=== PATIENT | female | born 1980 | race African-American/Black ===

== ENCOUNTER → 2020-04-28 | Outpatient (CLI) | payer MEDICAID, OTHER ==
--- NOTE | 2020-04-28 15:47 | KCIC ---
MRI Brain without contrast History:Numbness, dizziness, blurred vision, left hand numbness, numbness in fingers and toes, dizziness Technique: Multiplanar, multisequential noncontrast MR imaging was performed of the brain. Comparison: None Findings: Patient was unable to complete the exam due to claustrophobia. There is no evidence of recent infarct or cytotoxic edema. The ventricles, sulci, and cisterns are within normal limits in size and configuration. There is no significant midline shift, intraaxial mass effect, or focal abnormal extra-axial fluid collection. There is no significant signal abnormality of the brain parenchyma. There is preservation of the major intracranial flow-voids at the skull base. The cerebellar tonsils are normal in location. There is no significant abnormality of the pineal gland. There is sellar and suprasellar signal abnormality estimated about 1.1 cm CC by 1.1 cm AP by 1.2 cm transverse, internally mostly hyperintense on T2 sequence, somewhat mixed heterogeneous characteristics on the T1 sequence. There is minimal ethmoid air cell mucosal thickening. Frontal sinus is not pneumatized. The mastoid air cells are aerated. Mild heterogeneity of the marrow of the nonexpanded clivus may be due to residual red marrow in a patient this age. Impression: 1. There is sellar and suprasellar signal abnormality concerning for underlying mass or complex cyst lesion for which characterization with pre and postcontrast imaging recommended. 2. There is no intracranial mass effect or focal signal abnormality of the brain parenchyma. Electronically signed by: Trevor Lopez MD (04/28/2020 3:44 PM) [id number]
== END ==
LOC: KCIC MRI 14:01
PROVIDERS: ATTEND Psychiatry & Neurology Neurology with Special Qualifications in Child Neurology
DX: R20.0 Anesthesia of skin (principal); R42 Dizziness and giddiness; H53.8 Other visual disturbances
CPT/HCPCS: 70551

== ENCOUNTER → 2020-05-09 | Outpatient (CLI) | payer MEDICAID ==
[2020-05-10 07:19] LABS: FSH 3.5 mIU/mL (.); LUTEINIZING HORMONE 2.2 mIU/mL (.); PROLACTIN 40.5 ng/mL (4.8-23.3)
[2020-05-11 13:15] LABS: GROWTH HORMONE 0.1 ng/mL (0.0-10.0)
== END | disposition home or self-care (01) ==
LOC: LAB 16:01
PROVIDERS: ATTEND Psychiatry & Neurology Neurology with Special Qualifications in Child Neurology
DX: G93.89 Other specified disorders of brain (principal)
CPT/HCPCS: 36415; 83001; 83002; 83003; 84146; 84443

== ENCOUNTER → 2020-05-18 | Outpatient (CLI) | payer MEDICAID ==
[~2020-05-18] MED LIST: GADOTERATE 7.5 MMOL/15ML VIAL. IVP ONE
--- NOTE | 2020-05-18 14:06 | KCIC ---
MRI Brain with and without contrast History:Headaches, abnormal MRI Technique: Multiplanar, multi sequential pre and postcontrast MR imaging was performed of the brain. Comparison: Noncontrast exam April 28, 2020 Findings: There is motion degradation for the dedicated pituitary imaging. Infundibulum is deviated to the left. There is more heterogeneous, partially T2 hyperintense signal of the right aspect of the sella although more solid appearance anteriorly such as seen on image 12 series 13. There is associated relative decreased enhancement compared with the remainder of the pituitary gland. Focus of heterogeneous signal and relative decreased enhancement measures about 1.1 cm CC by about 1.3 cm transverse by about 0.9 cm AP. There is some extent to the right cavernous sinus with some insinuation between the cavernous and ophthalmic internal carotid artery. There is no significant displacement of the optic chiasm. There is no new brain parenchymal signal abnormality. There is no abnormal intracranial enhancement. Impression: 1. There is heterogeneous signal change and relative decreased enhancement of the central and right sella which has degree of cystic signal characteristics although more solid component anteriorly. 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 There is some extent to the right cavernous sinus. 2. There is no abnormal intracranial enhancement. Electronically signed by: Trevor Lopez MD (05/18/2020 2:04 PM) [id number]
== END | disposition home or self-care (01) ==
LOC: KCIC MRI 10:03
PROVIDERS: ATTEND Psychiatry & Neurology Neurology with Special Qualifications in Child Neurology
DX: G93.0 Cerebral cysts (principal); R51 Headache
CPT/HCPCS: 70553; A9575

== ENCOUNTER → 2021-05-01 | Outpatient (CLI) | payer MEDICAID ==
--- NOTE | 2021-05-01 13:36 | KCIC ---
EXAMINATION: Magnetic resonance imaging (MRI) of the brain and pituitary without and with contrast 05/01/2021 9:50 AM HISTORY: Suprasellar mass. Blurred vision, dizziness and numbness TECHNIQUE: Multiplanar multi-weighted MRI of the brain and brainstem was performed without and with i ntravenous contrast using the pituitary brain protocol. Contrast information: Gadolinium based contrast COMPARISON: MRI brain 05/18/2020, 04/28/2020. FINDINGS: There is a 1.3 x 1.5 x 1.3 cm mass centered within the sella with mixed T2 signal intensity and predo minantly T1 signal hypointensity. There is suprasellar extension without significant mass effect on o ptic chiasm. Infundibulum is deviated to the left. Cystic component does not enhance. No definite inv olvement of the cavernous sinuses with less than 180 degrees involvement of the right cavernous ICA. The scalp and calvarium are normal. The superior sagittal sinus demonstrates normal venous flow. The corpus callosum is normal in shape and signal intensity. The posterior fossa is unremarkable. The b rainstem and craniocervical junction are unremarkable. Diffusion weighted images reveal no hyperintensities to suggest acute cerebral infarction. The suscep tibility weighted sequences reveal no evidence of acute or chronic hemorrhage. The ventricles are nor mal in size and position without evidence of hydrocephalus. There are no areas of abnormal contrast enhancement. The paranasal sinuses are normal. The visualized portions of the mastoids are unremarkable. The orbi ts appear normal. Normal flow voids are demonstrated in the carotid arteries and basilar artery. IMPRESSION: There is a sellar based mass with cystic and solid components and mild suprasellar involvement withou t mass effect on optic chiasm. 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 No findings to suggest disease progression. Electronically signed by: Valorie Hay MD (05/01/2021 1:33 PM) [id number]
== END ==
LOC: KCIC MRI 09:30
PROVIDERS: ATTEND Psychiatry & Neurology Neurology with Special Qualifications in Child Neurology
DX: G93.89 Other specified disorders of brain (principal); H53.8 Other visual disturbances; R42 Dizziness and giddiness; R20.0 Anesthesia of skin
CPT/HCPCS: 70553; A9575